=== PATIENT | male | born 1940 | race Caucasian/White ===

== ENCOUNTER 2016-10-28 08:25 | Inpatient (IN) | payer OTHER ==
[~2016-10-28] VITALS: Ht 165.1 cm; Wt 89.8 kg
[2016-10-28 09:33] LABS: BASOPHIL % 1.1 % (0-2); PLATELET COUNT 331 x10^3mcL (130-400); RED CELL DISTRIBUTION WIDTH 13.7 % (11.5-14.5)
[2016-10-28 09:35] LABS: SODIUM SERUM 138 mmol/L (136-145)
[2016-10-28 09:36] LABS: ALKALINE PHOSPHATASE 34 U/L (46-116); ALT/SGPT 30 U/L (16-63); AST/SGOT 36 U/L (15-37); BILIRUBIN TOTAL 0.7 mg/dL (0.20-1.00); CALCIUM 9.7 mg/dL (8.5-10.1); CARBON DIOXIDE 29.1 mmol/L (21-32); CHLORIDE SERUM 102 mmol/L (98-107); GLUCOSE SERUM 155 mg/dL (74-106); POTASSIUM SERUM 3.9 mmol/L (3.5-5.1); TOTAL PROTEIN, SERUM 7.5 g/dL (6.4-8.2)
[2016-10-28 09:47] LABS: CREATININE SERUM 1.9 mg/dL (0.7-1.3)
[2016-10-28] MEDS ORDERED: HYDROCHLOROTHIA50 MG PO (10:03)
[2016-10-28] MEDS ORDERED: TERAZOSIN HCL2 MG PO (10:04)
[2016-10-28] MEDS ORDERED: POTASSIUM99 M1 PO (10:04)
[2016-10-28] MEDS ORDERED: DILTIAZEM HCL180 MG PO (10:04)
[2016-10-28] MEDS ORDERED: GOOD SENSE OMEP20 MG PO (10:04)
[2016-10-28] MEDS ORDERED: THE MEDICINE S300 MG PO (10:04)
[2016-10-28] MEDS ORDERED: VITAMIN D32000 I2 PO (10:05)
[2016-10-28] MEDS ORDERED: CENTRUM1 TA2 PO (10:05)
[2016-10-28 10:44] LABS: CHOLESTEROL/HDL RATIO 4.5; MAGNESIUM 1.6 mg/dL (1.8-2.4); PHOSPHOROUS 2.6 mg/dL (2.5-4.9)
[2016-10-28 10:55] LABS: FREE T4 0.97 ng/dL (0.76-1.46); FREE THYROXINE INDEX 2.4 ug/dL (1.4-4.5); T4(THYROXINE) 6.4 ug/dL (4.7-13.3)
[2016-10-28 10:59] LABS: T3 TOTAL 0.79 ng/mL
[2016-10-28 12:35] VITALS: BP 143/77
[2016-10-28 16:47] VITALS: BP 143/77
[2016-10-28 18:00] VITALS: BP 126/84
[2016-10-28] MEDS ORDERED: POTASSIUM CHLO20 ME1 PO (20:18)
[2016-10-28] MEDS ORDERED: FENOFIBRATE160 M1 PO (20:20)
[2016-10-28 20:40] VITALS: BP 144/79
[2016-10-28] MEDS ORDERED: LATANOPROST2.5 ML OU (20:47)
[2016-10-29 02:04] LABS: microscopic required? NO
[2016-10-29 02:24] LABS: UA SPECIFIC GRAVITY 1.015 (1.005-1.035); urine erythrocyte NEGATIVE (NEGATIVE)
[2016-10-29 05:30] VITALS: BP 107/70
[2016-10-29 06:26] LABS: CALCIUM 8.8 mg/dL (8.5-10.1); CARBON DIOXIDE 27.1 mmol/L (21-32); CHLORIDE SERUM 106 mmol/L (98-107); CREATININE SERUM 1.8 mg/dL (0.7-1.3); GLUCOSE SERUM 133 mg/dL (74-106); MAGNESIUM 2.2 mg/dL (1.8-2.4); PHOSPHOROUS 3.3 mg/dL (2.5-4.9); POTASSIUM SERUM 3.5 mmol/L (3.5-5.1); SODIUM SERUM 141 mmol/L (136-145)
[2016-10-29 06:40] LABS: BASOPHIL % 0.4 % (0-2); PLATELET COUNT 248 x10^3mcL (130-400); RED CELL DISTRIBUTION WIDTH 14.4 % (11.5-14.5)
[2016-10-29 11:30] VITALS: BP 127/77
[2016-10-29 12:51] VITALS: BP 122/74
[2016-10-29 17:09] VITALS: BP 127/73
[2016-10-29 21:07] VITALS: BP 124/63
[2016-10-30 06:03] VITALS: BP 117/71
[2016-10-30 06:24] LABS: BASOPHIL % 0.2 % (0-2); PLATELET COUNT 227 x10^3mcL (130-400); RED CELL DISTRIBUTION WIDTH 14.2 % (11.5-14.5)
[2016-10-30 06:25] LABS: CALCIUM 8.7 mg/dL (8.5-10.1); CHLORIDE SERUM 105 mmol/L (98-107); CREATININE SERUM 1.7 mg/dL (0.7-1.3); GLUCOSE SERUM 149 mg/dL (74-106); POTASSIUM SERUM 3.5 mmol/L (3.5-5.1); SODIUM SERUM 137 mmol/L (136-145)
[2016-10-30 09:25] VITALS: BP 118/70
[2016-10-30 17:09] VITALS: BP 114/65
[2016-10-30 21:54] VITALS: BP 126/69
[2016-10-31 06:25] VITALS: BP 116/72
[2016-10-31 07:01] LABS: BASOPHIL % 0.5 % (0-2); PLATELET COUNT 234 x10^3mcL (130-400); RED CELL DISTRIBUTION WIDTH 14.4 % (11.5-14.5)
[2016-10-31 07:56] LABS: CALCIUM 8.8 mg/dL (8.5-10.1); CARBON DIOXIDE 27.5 mmol/L (21-32); CHLORIDE SERUM 106 mmol/L (98-107); CREATININE SERUM 1.5 mg/dL (0.7-1.3); GLUCOSE SERUM 103 mg/dL (74-106); POTASSIUM SERUM 3.5 mmol/L (3.5-5.1); SODIUM SERUM 139 mmol/L (136-145)
[2016-10-31 10:25] VITALS: BP 117/62
[2016-10-31] MEDS ORDERED: APAP/HYDROCODON1 T13 PO (14:10)
[2016-10-31 17:51] VITALS: BP 144/66
[2016-10-31 18:02] VITALS: BP 144/66
[2016-10-31 20:56] VITALS: BP 124/69
== END 2016-11-01 01:00 | DRG 492 ==
LOC: ED 08:25 → DU 09:59 → MU 09:59 → DU 12:01 → MU 10-29 14:51
PROVIDERS: Emergency Medicine; Podiatrist Foot & Ankle Surgery; ADMIT Family Medicine
PROC: 0QSKXZZ Reposition Left Fibula, External Approach (ICD-10-PCS; 2016-10-28)
PROC: 0QSK04Z Reposition Left Fibula with Internal Fixation Device, Open Approach (ICD-10-PCS; principal; 2016-10-29 07:30)
DX: S82.852A Displaced trimalleolar fracture of left lower leg, initial encounter for closed fracture (principal); N17.0 Acute kidney failure with tubular necrosis; G92 Toxic encephalopathy; E11.9 Type 2 diabetes mellitus without complications; K21.9 Gastro-esophageal reflux disease without esophagitis; F10.129 Alcohol abuse with intoxication, unspecified; L30.9 Dermatitis, unspecified; E78.5 Hyperlipidemia, unspecified; E83.42 Hypomagnesemia; I10 Essential (primary) hypertension; N40.0 Benign prostatic hyperplasia without lower urinary tract symptoms; F17.210 Nicotine dependence, cigarettes, uncomplicated; Z96.652 Presence of left artificial knee joint; W01.0XXA Fall on same level from slipping, tripping and stumbling without subsequent striking against object, initial encounter; Y92.002 Bathroom of unspecified non-institutional (private) residence as the place of occurrence of the external cause
CPT/HCPCS: 82962; 83880; 84439; 94150; 97110-GP; 97116-GP; 97530-GP; C1713; C9359; G0480; J0690; J1644; J2175; J2250; J2270; J2405; J2704; J3010; J3475; J3490; J7030; Q0092